=== PATIENT | male | born 1940 | race Caucasian/White ===

== ENCOUNTER 2019-05-14 08:56 | Emergency (ER) | payer MEDICARE, SELFPAY ==
[2019-05-14 09:01] VITALS: BP 191/108; PULSE 83; RESP 16; TEMP 36.6; O2SAT 96; BMI 27.2
--- NOTE | 2019-05-14 09:19 | ED_ITS ---
HPI - Male Genitourinary General: Chief complaint: Urogenital-Male Stated complaint: possible urinary tract infection Time Seen by Provider: 05/14/19 09:05 History of Present Illness: HPI Narrative: Patient is a 79-year-old male comes to the ED with problems urinating. He states that the symptoms started 2 days ago. He would have a little bit of dribbling and felt like he needed to urinate and when he would try to urinate just a little mild would come out. He states that about an hour ago he was finally able to void a large amount. He says currently he does not have abdominal pain or A feeling that his bladder is full. Denies hematuria or pain or burning when he urinates. Patient does take Flomax and ran out of his prescription on May 03. He has been trying to get an appointment with his primary care physician office for next week, but was unable to get a hold of them. Denies any fever, chest pain, shortness of breath, back pain, abdominal pain, bowel symptoms. Review of Systems General: Reports: 10 or more systems reviewed and unremarkable except in HPI and below PFSH ED PFSH: Statuses (acute, chronic, etc) shown below reflect problem list status as previously entered and may not be historically accurate Social History Smoking and tobacco status: former smoker Physical Exam Const: COMMON NORMALS: oriented x3 HENMT: COMMON NORMALS: normocephalic HEAD & SCALP: normocephalic MOUTH: oral and palatal mucosa normal TEETH & GINGIVA: Yes abnormal tooth and associated gingiva, Yes caries and Yes poor dentition THROAT: posterior oropharynx normal and uvula midline Neck/C-Spine: COMMON NORMALS: supple GENERAL: Yes normal visual inspection Resp: COMMON NORMALS: normal respiratory effort, no retractions, no use of accessory muscles and clear to auscultation bilaterally AUSCULTATION: clear to auscultation bilaterally Cardio: COMMON NORMALS: regular rate, regular rhythm, S1 normal heart sound, S2 normal heart sound, no gallops, no clicks, no murmurs and peripheral pulses 2+ throughout RATE: regular rate RHYTHM: regular rhythm HEART SOUNDS: S1 normal and S2 normal PERIPHERAL PULSES: pulses 2+ throughout GI: COMMON NORMALS: normal to inspection, nondistended, normoactive bowel sounds, soft to palpation, non-tender and no masses PALPATION: Yes soft : COMMON NORMALS: Yes no CVA tenderness BLADDER/KIDNEY EXAM: Yes no CVA tenderness Back/Pelvis: COMMON NORMALS: no CVA tenderness Neuro: COMMON NORMALS: oriented x3 and moves all extremities GAIT: Yes normal gait Procedures Catheter Insertion (Urinary) Date of insertion: 05/14/19 Reason for placing: Yes Reason for placing indwelling catheter: Acute urinary retention Bladder scan/ultrasound used before catheterization: Yes Estimated amount of urine (mLs): 999 Antiseptic solution prep: Povidone-Iodine Topical anesthesia used: No Catheter type/location: Urethral Results: successfully catheterized-immediate flow Procedure performed: without complications Comment: The nurse performed this procedure. Course ED course: Nurse performed a bladder scan and it showed that bladder contained over 999 ml. I then ordered nurse to place Sims catheter. Patient will be sent home with a catheter and given leg bag attachments and educated on care and management of catheter. I told patient that I will be putting in a urology referral to the [facility] urologist. Vital Signs: Vital signs: Vital Signs Temperature 97.8 F 05/14/19 09:01 Pulse Rate 71 05/14/19 12:16 Respiratory Rate 16 05/14/19 12:16 Blood Pressure 152/94 05/14/19 12:16 Pulse Oximetry 97 05/14/19 12:16 MDM - Male Lab Data: Attestation: I reviewed the patient's lab results. Labs: Lab Results 05/14/19 Range/Units 10:20 Urine Color Yellow (Yellow) Urine Appearance Sl hazy (CLEAR) Urine pH 5 (5-7) Ur Specific Gravit y 1.020 (1.005-1.030) Urine Protein 1+ H (Negative) Urine Glucose (UA) Norm (Normal) Urine Ketones 1+ H (Negative) Urine Occult Blood 2+ H (Negative) Urine Nitrate Positive H (Negative) Urine Bilirubin 1+ H (NEGATIVE) Urine Urobilinogen 4 H (Negative) mg/dL Ur Leukocyte Chastity ase Trace H (Negative) Urine RBC 5-10 H (0-2) /hpf Urine WBC 25-40 H (0-5) /hpf Ur Squamous Epith Cells 5-10 H (0-5) Urine Bacteria 1+ H (NONE) Hyaline Casts Rare Urine Mucus Trace Discharge Plan Discharge Patient Disposition: Home, Self-Care Clinical Impression: Acute retention of urine Urinary tract infection Qualifiers: Urinary tract infection type: acute cystitis Hematuria presence: with hematuria Qualified Code(s): N30.01 - Acute cystitis with hematuria Condition: Stable Prescriptions: New Bactrim DS 800-160 mg tablet 1 tab PO DAILY 7 Days Qty: 7 RF: 0 Flomax 0.4 mg capsule 0.4 mg PO DAILY 30 Days Qty: 30 RF: 0 Discharge Orders: Discharge Order (Routine); Ordered 05/14/19 Ordered By: Ceasar Marin Discharge Diet: Regular Discharge Activity: Resume usual activity Activity Restrictions/Additional Instructions: I am placing a referral to urology for you. The [facility] urology office (Dr. Stout) will be contacting you in the next couple days to set up an appointment. Follow structure in its told to you by the nurse on Sims catheter care and management. He'll be sent home with several leg bag attachments. Take full course of antibiotics as prescribed. Take Tylenol or ibuprofen as needed for fevers. Discharge Date/Time: 05/14/19 12:17 Coding Level of Care Code ED Talent Acquisition Director for Bayron Davis
[2019-05-14 11:02] LABS: Bilirubin Urine 1+ (NEGATIVE); Blood Urine 2+ (Negative); Glucose Urine UA Norm (Normal); Ketones Urine 1+ (Negative); Leukocyte Esterase Urine Trace (Negative); Nitrate Urine Positive (Negative); Protein Urine 1+ (Negative); Urine Appearance SL Hazy (CLEAR); Urine Color Yellow (Yellow); Urobilinogen Urine 4 mg/dL (Negative); pH Urine 5 (5-7)
[2019-05-14 11:06] LABS: Hyaline Casts Urine RARE; Mucus Urine TRACE
[2019-05-14 11:08] LABS: Bacteria Urine 1+
[2019-05-14 11:09] LABS: Add Urine Culture? Yes; WBC Urine 25-40 /hpf (0-5)
[2019-05-14 12:16] VITALS: BP 152/94; PULSE 71; RESP 16; O2SAT 97
--- NOTE | 2019-05-16 14:35 | DCPLANNER ---
computer security manager had message to schedule a follow up appointment for patient with Dr. Stout. computer security manager called the office of Dr. Stout, spoke with Jolene, gave clinic patients information. computer security manager was told that patients information would be printed and given to Ashly for review. Clinic will call patient with appointment information. computer security manager will call for appointment information.
--- NOTE | 2019-05-18 14:14 | DCPLANNER ---
Patient has a follow up appointment scheduled for 05.23.19 at 3:[address] Stout. Clinic will call patient with appointment information.
--- NOTE | 2019-06-21 14:08 | DCPLANNER ---
Patient did attend appointment scheduled for 05.23.19 with Argelia.
== END 2019-05-14 12:17 | disposition home or self-care (01) ==
PROVIDERS: Emergency Provider Physician Assistant
DX: N30.01 Acute cystitis with hematuria (principal); Z87.891 Personal history of nicotine dependence
CPT/HCPCS: 51702; 81001; 87086; 99282

== ENCOUNTER 2021-03-26 12:13 | Emergency (ER) | payer MEDICARE, SELFPAY ==
[2021-03-26 12:27] VITALS: BP 175/98; PULSE 99; RESP 16; TEMP 36.8; O2SAT 97; BMI 27.5
--- NOTE | 2021-03-26 12:46 | ECG_ITS ---
[facility] Test Date: 2021-03-26 Pat Name: Corbin Ramon Department: Room: Gender: Male Financial Intern: : 1940 Requested By: Rigoberto Florian Order Number: [id number] Reading MD: ELIOT CROW Measurements Intervals [place] Rate: 81 P: 32 DC: 185 QRS: -16 QRSD: 90 T: 24 QT: 373 QTc: 434 Interpretive Statements SINUS RHYTHM Compared to ECG 12/30/2017 02:26:03 Atrial fibrillation no longer present Electronically Signed On 03-26-2021 19:58:06 MORTGAGE ACCOUNTING CLERK by ELIOT CROW [email or web address]
--- NOTE | 2021-03-26 12:50 | ED_ITS ---
Documented by User: Rigoberto Thao DO 03/27/21 11:47 HPI - Altered Mental Status General: Chief Complaint: Altered Mental Status Stated Complaint: MHE//HI Time Seen by Provider: 03/26/21 12:30 History of Present Illness: HPI narrative: 81-year-old male presents to the emergency room via private vehicle. Evidently he is quite upset and threatened current owners of the property that he had previously lost with his ex-. P atient is disoriented confused on Mini-Mental status exam he scores very poorly. He uses several distracting techniques when questioned directly. He feels the property is his that he lost in a divorce and he was making threatening MD complaint: altered mental status and confusion Onset (ago): unknown Severity: mild Consistency of symptoms: Getting Worse Associated symptoms: Reports delusions; Deny auditory hallucinations, visual hallucinations, depression, homicidal ideation, racing thoughts or suicidal ideation Review of Systems Const: Denies: fever(s), chills, body aches, change in appetite, fatigue or malaise ENMT: Denies: throat pain, ear or mastoid pain, nasal discharge or nasal congestion Card: Denies: chest pain, edema, dyspnea on exertion or orthopnea Resp: Denies: dyspnea, productive cough or non-productive cough GI: Denies: abdominal pain, nausea, vomiting, hematemesis, coffee ground emesis, diarrhea, constipation, bloating, hematochezia or melena : Denies: flank pain, dysuria, urinary frequency or urinary urgency Skin/Breast: Denies: rash or pruritus Psych: Denies: depression, visual hallucinations, auditory hallucinations, suicidal ideation or homicidal ideation [facility] ED PFSH: Medical History (Updated 03/26/21 @ 20:43 by Ministerio Grewal MD) Urinary retention Family History Father , PROSTATE CANCER No problems noted. Social History Smoking and tobacco status: former smoker Alcohol intake: never Adopted: No Caregiver/support person: No Lives independently: No Household members: significant other Marital status: Life Partner Current occupational status: retired Physical Exam Const: COMMON NORMALS: no acute distress GENERAL APPEARANCE: cooperative and comfortable ORIENTATION/CONSCIOUSNESS: Yes awake, Yes oriented to person, Yes oriented to place and Yes oriented to time HENMT: COMMON NORMALS: normocephalic, atraumatic and hearing grossly normal bilaterally HEAD & SCALP: normocephalic and atraumatic Neck/C-Spine: COMMON NORMALS: no JVD Resp: COMMON NORMALS: normal respiratory effort, No retractions, No use of accessory muscles and clear to auscultation bilaterally AUSCULTATION: clear to auscultation bilaterally Cardio: COMMON NORMALS: no JVD, regular rate, regular rhythm and No murmurs present (Cardio) RATE: regular rate RHYTHM: regular rhythm GI: COMMON NORMALS: Soft to palpation and No hepatosplenomegaly present AUSCULTATION: Yes normoactive bowel sounds PALPATION: Yes Soft to palpation, No Tenderness to palpation present (GI), No Guarding due to palpation present ( GI) and Yes No hepatosplenomegaly present Extremity: COMMON NORMALS: normal to inspection, capillary refill normal, no clubbing, cyanosis or edema, no calf tenderness and no pedal edema Neuro: SENSORIUM/ORIENTATION: Yes oriented to person, Yes oriented to place and Yes oriented to time Psych: THOUGHT CONTENT: Yes delusions Skin: COMMON NORMALS: no rashes or lesions noted GENERAL SKIN EXAM: no rashes or lesions noted Course Vital Signs: Vital signs: Vital Signs Temperature 98.2 F 03/27/21 05:42 Pulse Rate 60 03/27/21 05:42 Respiratory Rate 18 03/27/21 05:42 Blood Pressure 149/90 03/27/21 05:42 Pulse Oximetry 97 03/27/21 05:42 MDM - Altered Mental Status MDM Narrative: Medical decision making narrative: March 26, 2021 6 PM?care turned over to Dr. Grewal at change of shift. March 27, 2021 5:45 AM?care assumed at change of shift. We are waiting on transfer we have an accepting facility but has not yet been able to transfer him out. We are waiting on ambulance availability. [id number] initial facility that was planning on taking him has declined. [place] has excepted Dr. Bone will accept reviewed labs discussed with his nurse practitioner will transfer via ambulance. Lab Data: Labs: Lab Results 03/26/21 03/26/21 03/26/21 13:35 13:35 13:45 WBC Cancelled Corrected WBC Cancelled RBC Cancelled Hgb Cancelled Hct Cancelled MCV Cancelled MCH Cancelled MCHC Cancelled RDW Cancelled Plt Count Cancelled MPV Cancelled Gran % Cancelled Neut % (Auto) Cancelled Lymph % (Auto) Cancelled [place] % (Auto) Cancelled Eos % (Auto) Cancelled Baso % (Auto) Cancelled Neut # (Auto) Cancelled Lymph # (Auto) Cancelled [place] # (Auto) Cancelled Eos # (Auto) Cancelled Baso # (Auto) Cancelled Absolute Gran (aut o) Cancelled Nucleated RBC % (a uto) Cancelled Nucleated RBCs # Cancelled Sodium Potassium Chloride Carbon Dioxide Anion Gap BUN Creatinine GFR Calculation Glucose Calculated Osmolal ity Calcium Total Bilirubin AST ALT Alkaline Phosphata se Total Protein Albumin Globulin TSH Free T4 Free T3 Urine Color Straw (Yellow) Urine Appearance Clear (CLEAR) Urine pH 5 (5-7) Ur Specific Gravit y 1.020 (1.005-1.030) Urine Protein Neg (Negative) Urine Glucose (UA) Norm (Normal) Urine Ketones Negative (Negative) Urine Blood Trace H (Negative) Urine Nitrate Negative (Negative) Urine Bilirubin Neg (Negative) Urine Urobilinogen Norm mg/dL mg/dL (Negative) Ur Leukocyte Chastity ase 1+ H (Negative) Urine RBC 0-4 /hpf H /hpf (0-2) Urine WBC 5-10 /hpf H /hpf (0-5) Ur Squamous Epith Cells 0-4 /hpf H /hpf (0-5) Amorphous Sediment Not Reportable Urine Bacteria Trace /hpf /hpf (NONE) Urine Mucus Trace /hpf /hpf Salicylates Urine Opiates Scre en Negative ng/mL ng /mL (Negative) Acetaminophen Ur Barbiturates Sc reen Negative ng/mL ng /mL (Negative) Ur Phencyclidine S crn Negative ng/mL ng /mL (Negative) Ur Amphetamines Sc reen Negative ng/mL ng /mL (Negative) U Benzodiazepines Scrn Negative ng/mL ng /mL (Negative) Urine Cocaine Scre en Negative ng/mL ng /mL (Negative) U Marijuana (THC) Screen Negative ng/mL ng /mL (Negative) Ethyl Alcohol SARS-CoV-2 Ag (Rap id) 03/26/21 03/26/21 03/26/21 13:45 14:05 14:25 WBC 8.9 10^3/uL 10^3/ uL (4.0-10.0) Corrected WBC RBC 4.71 10^6/uL 10^6 /uL (4.1-5.3) Hgb 14.9 g/dL g/dL (11.7-16.6) Hct 45.2 % % (42.0-52.0) MCV 96.0 fl H fl (80-94) MCH 31.6 pg pg (28.0-34.0) MCHC 33.0 g/dL g/dL (30.0-36.0) RDW 13.3 % % (12.1-15.1) Plt Count 225 10^3/cmm 10^3 /cmm (130-400) MPV 9.7 fL fL (7.4-10.4) Gran % Neut % (Auto) 79.4 % % Lymph % (Auto) 12.5 % % [place] % (Auto) 7.5 % % Eos % (Auto) 0.1 % % Baso % (Auto) 0.3 % % Neut # (Auto) 7.05 10^3/uL 10^3 /uL (1.8-7.7) Lymph # (Auto) 1.1 10^3/uL 10^3/ uL (0.8-4.8) [place] # (Auto) 0.7 10^3/uL 10^3/ uL (0.2-0.9) Eos # (Auto) 0.0 10^3/uL 10^3/ uL (0.0-0.8) Baso # (Auto) 0.0 10^3/uL 10^3/ uL (0.0-0.1) Absolute Gran (aut o) Nucleated RBC % (a uto) 0 % % Nucleated RBCs # 0.0 /100WBC /100W BC Sodium Cancelled 141 mmol/L mmol/L (136-145) Potassium Cancelled 4.1 mmol/L mmol/L (3.5-5.1) Chloride Cancelled 102 mmol/L mmol/L (98-107) Carbon Dioxide Cancelled 21 mmol/L L mmol/ L (22-29) Anion Gap Cancelled 22.1 H (5-19) BUN Cancelled 13 mg/dL mg/dL (8-23) Creatinine Cancelled 1.4 mg/dL H mg/dL (0.7-1.2) GFR Calculation Cancelled Not Reportable Glucose Cancelled 102 mg/dL mg/dL (65-115) Calculated Osmolal ity Cancelled 292 mOsm/kg mOsm/ kg (285-295) Calcium Cancelled 8.9 mg/dL mg/dL (8.5-10.5) Total Bilirubin Cancelled 0.7 mg/dL mg/dL (0.15-1.2) AST Cancelled 12 U/L U/L (0-40) ALT Cancelled 11 U/L U/L (0-41) Alkaline Phosphata se Cancelled 58 IU/L IU/L (40-130) Total Protein Cancelled 6.7 g/dL g/dL (6.6-8.7) Albumin Cancelled 4.3 g/dL g/dL (3.5-5.2) Globulin Cancelled 2.4 g/dL g/dL (1.3-4.6) TSH Cancelled 2.41 uIU/mL uIU/m L (0.27-4.20) Free T4 Free T3 Urine Color Urine Appearance Urine pH Ur Specific Gravit y Urine Protein Urine Glucose (UA) Urine Ketones Urine Blood Urine Nitrate Urine Bilirubin Urine Urobilinogen Ur Leukocyte Chastity ase Urine RBC Urine WBC Ur Squamous Epith Cells Amorphous Sediment Urine Bacteria Urine Mucus Salicylates Cancelled < 0.3 mg/dL L mg/ dL (3-10) Urine Opiates Scre en Acetaminophen Cancelled < 5.0 ug/mL L ug/ mL (10-30) Ur Barbiturates Sc reen Ur Phencyclidine S crn Ur Amphetamines Sc reen U Benzodiazepines Scrn Urine Cocaine Scre en U Marijuana (THC) Screen Ethyl Alcohol Cancelled < 10 mg/dL mg/dL (0-10) SARS-CoV-2 Ag (Rap id) 03/26/21 03/26/21 14:25 15:18 WBC Corrected WBC RBC Hgb Hct MCV MCH MCHC RDW Plt Count MPV Gran % Neut % (Auto) Lymph % (Auto) [place] % (Auto) Eos % (Auto) Baso % (Auto) Neut # (Auto) Lymph # (Auto) [place] # (Auto) Eos # (Auto) Baso # (Auto) Absolute Gran (aut o) Nucleated RBC % (a uto) Nucleated RBCs # Sodium Potassium Chloride Carbon Dioxide Anion Gap BUN Creatinine GFR Calculation Glucose Calculated Osmolal ity Calcium Total Bilirubin AST ALT Alkaline Phosphata se Total Protein Albumin Globulin TSH Free T4 1.09 ng/dL ng/dL (0.82-1.77) Free T3 2.4 PG/ML PG/ML (2.0-4.4) Urine Color Urine Appearance Urine pH Ur Specific Gravit y Urine Protein Urine Glucose (UA) Urine Ketones Urine Blood Urine Nitrate Urine Bilirubin Urine Urobilinogen Ur Leukocyte Chastity ase Urine RBC Urine WBC Ur Squamous Epith Cells Amorphous Sediment Urine Bacteria Urine Mucus Salicylates Urine Opiates Scre en Acetaminophen Ur Barbiturates Sc reen Ur Phencyclidine S crn Ur Amphetamines Sc reen U Benzodiazepines Scrn Urine Cocaine Scre en U Marijuana (THC) Screen Ethyl Alcohol SARS-CoV-2 Ag (Rap id) Negative (Negative) Discharge Plan Discharge Patient Disposition: Xfer Psychiatric Hosp Clinical Impression: Agitation, Confusion Condition: Stable Referrals: Brian Reyes MD [Primary Care Provider] - Coding Level of Care Code ED Manager Document Control for Chg Fwd Exam Comprehensive Documented by User: Ministerio Grewal MD 03/26/21 20:44 HPI - Altered Mental Status General: Chief Complaint: Altered Mental Status Stated Complaint: MHE//HI Time Seen by Provider: 03/26/21 12:30 PFSH ED PFSH: Medical History (Updated 03/26/21 @ 20:43 by Ministerio Grewal MD) Urinary retention Family History Father , PROSTATE CANCER No problems noted. Social History Smoking and tobacco status: former smoker Alcohol intake: never Adopted: No Caregiver/support person: No Lives independently: No Household members: significant other Marital status: Life Partner Current occupational status: retired Course Vital Signs: Vital signs: Vital Signs Temperature 98.2 F 03/27/21 05:42 Pulse Rate 60 03/27/21 05:42 Respiratory Rate 18 03/27/21 05:42 Blood Pressure 149/90 03/27/21 05:42 Pulse Oximetry 97 03/27/21 05:42 MDM - Altered Mental Status MDM Narrative: Medical decision making narrative: Patient presents here with agitation has been threatening people as well I took patient over from Dr. Amaro I spoke to Dr. Whitt at [place] who is excepting for geriatric psych patient is medically cleared will transfer there. Lab Data: Labs: Lab Results 03/26/21 03/26/21 03/26/21 13:35 13:35 13:45 WBC Cancelled Corrected WBC Cancelled RBC Cancelled Hgb Cancelled Hct Cancelled MCV Cancelled MCH Cancelled MCHC Cancelled RDW Cancelled Plt Count Cancelled MPV Cancelled Gran % Cancelled Neut % (Auto) Cancelled Lymph % (Auto) Cancelled [place] % (Auto) Cancelled Eos % (Auto) Cancelled Baso % (Auto) Cancelled Neut # (Auto) Cancelled Lymph # (Auto) Cancelled [place] # (Auto) Cancelled Eos # (Auto) Cancelled Baso # (Auto) Cancelled Absolute Gran (aut o) Cancelled Nucleated RBC % (a uto) Cancelled Nucleated RBCs # Cancelled Sodium Potassium Chloride Carbon Dioxide Anion Gap BUN Creatinine GFR Calculation Glucose Calculated Osmolal ity Calcium Total Bilirubin AST ALT Alkaline Phosphata se Total Protein Albumin Globulin TSH Free T4 Free T3 Urine Color Straw (Yellow) Urine Appearance Clear (CLEAR) Urine pH 5 (5-7) Ur Specific Gravit y 1.020 (1.005-1.030) Urine Protein Neg (Negative) Urine Glucose (UA) Norm (Normal) Urine Ketones Negative (Negative) Urine Blood Trace H (Negative) Urine Nitrate Negative (Negative) Urine Bilirubin Neg (Negative) Urine Urobilinogen Norm mg/dL mg/dL (Negative) Ur Leukocyte Chastity ase 1+ H (Negative) Urine RBC 0-4 /hpf H /hpf (0-2) Urine WBC 5-10 /hpf H /hpf (0-5) Ur Squamous Epith Cells 0-4 /hpf H /hpf (0-5) Amorphous Sediment Not Reportable Urine Bacteria Trace /hpf /hpf (NONE) Urine Mucus Trace /hpf /hpf Salicylates Urine Opiates Scre en Negative ng/mL ng /mL (Negative) Acetaminophen Ur Barbiturates Sc reen Negative ng/mL ng /mL (Negative) Ur Phencyclidine S crn Negative ng/mL ng /mL (Negative) Ur Amphetamines Sc reen Negative ng/mL ng /mL (Negative) U Benzodiazepines Scrn Negative ng/mL ng /mL (Negative) Urine Cocaine Scre en Negative ng/mL ng /mL (Negative) U Marijuana (THC) Screen Negative ng/mL ng /mL (Negative) Ethyl Alcohol SARS-CoV-2 Ag (Rap id) 03/26/21 03/26/21 03/26/21 13:45 14:05 14:25 WBC 8.9 10^3/uL 10^3/ uL (4.0-10.0) Corrected WBC RBC 4.71 10^6/uL 10^6 /uL (4.1-5.3) Hgb 14.9 g/dL g/dL (11.7-16.6) Hct 45.2 % % (42.0-52.0) MCV 96.0 fl H fl (80-94) MCH 31.6 pg pg (28.0-34.0) MCHC 33.0 g/dL g/dL (30.0-36.0) RDW 13.3 % % (12.1-15.1) Plt Count 225 10^3/cmm 10^3 /cmm (130-400) MPV 9.7 fL fL (7.4-10.4) Gran % Neut % (Auto) 79.4 % % Lymph % (Auto) 12.5 % % [place] % (Auto) 7.5 % % Eos % (Auto) 0.1 % % Baso % (Auto) 0.3 % % Neut # (Auto) 7.05 10^3/uL 10^3 /uL (1.8-7.7) Lymph # (Auto) 1.1 10^3/uL 10^3/ uL (0.8-4.8) [place] # (Auto) 0.7 10^3/uL 10^3/ uL (0.2-0.9) Eos # (Auto) 0.0 10^3/uL 10^3/ uL (0.0-0.8) Baso # (Auto) 0.0 10^3/uL 10^3/ uL (0.0-0.1) Absolute Gran (aut o) Nucleated RBC % (a uto) 0 % % Nucleated RBCs # 0.0 /100WBC /100W BC Sodium Cancelled 141 mmol/L mmol/L (136-145) Potassium Cancelled 4.1 mmol/L mmol/L (3.5-5.1) Chloride Cancelled 102 mmol/L mmol/L (98-107) Carbon Dioxide Cancelled 21 mmol/L L mmol/ L (22-29) Anion Gap Cancelled 22.1 H (5-19) BUN Cancelled 13 mg/dL mg/dL (8-23) Creatinine Cancelled 1.4 mg/dL H mg/dL (0.7-1.2) GFR Calculation Cancelled Not Reportable Glucose Cancelled 102 mg/dL mg/dL (65-115) Calculated Osmolal ity Cancelled 292 mOsm/kg mOsm/ kg (285-295) Calcium Cancelled 8.9 mg/dL mg/dL (8.5-10.5) Total Bilirubin Cancelled 0.7 mg/dL mg/dL (0.15-1.2) AST Cancelled 12 U/L U/L (0-40) ALT Cancelled 11 U/L U/L (0-41) Alkaline Phosphata se Cancelled 58 IU/L IU/L (40-130) Total Protein Cancelled 6.7 g/dL g/dL (6.6-8.7) Albumin Cancelled 4.3 g/dL g/dL (3.5-5.2) Globulin Cancelled 2.4 g/dL g/dL (1.3-4.6) TSH Cancelled 2.41 uIU/mL uIU/m L (0.27-4.20) Free T4 Free T3 Urine Color Urine Appearance Urine pH Ur Specific Gravit y Urine Protein Urine Glucose (UA) Urine Ketones Urine Blood Urine Nitrate Urine Bilirubin Urine Urobilinogen Ur Leukocyte Chastity ase Urine RBC Urine WBC Ur Squamous Epith Cells Amorphous Sediment Urine Bacteria Urine Mucus Salicylates Cancelled < 0.3 mg/dL L mg/ dL (3-10) Urine Opiates Scre en Acetaminophen Cancelled < 5.0 ug/mL L ug/ mL (10-30) Ur Barbiturates Sc reen Ur Phencyclidine S crn Ur Amphetamines Sc reen U Benzodiazepines Scrn Urine Cocaine Scre en U Marijuana (THC) Screen Ethyl Alcohol Cancelled < 10 mg/dL mg/dL (0-10) SARS-CoV-2 Ag (Rap id) 03/26/21 03/26/21 14:25 15:18 WBC Corrected WBC RBC Hgb Hct MCV MCH MCHC RDW Plt Count MPV Gran % Neut % (Auto) Lymph % (Auto) [place] % (Auto) Eos % (Auto) Baso % (Auto) Neut # (Auto) Lymph # (Auto) [place] # (Auto) Eos # (Auto) Baso # (Auto) Absolute Gran (aut o) Nucleated RBC % (a uto) Nucleated RBCs # Sodium Potassium Chloride Carbon Dioxide Anion Gap BUN Creatinine GFR Calculation Glucose Calculated Osmolal ity Calcium Total Bilirubin AST ALT Alkaline Phosphata se Total Protein Albumin Globulin TSH Free T4 1.09 ng/dL ng/dL (0.82-1.77) Free T3 2.4 PG/ML PG/ML (2.0-4.4) Urine Color Urine Appearance Urine pH Ur Specific Gravit y Urine Protein Urine Glucose (UA) Urine Ketones Urine Blood Urine Nitrate Urine Bilirubin Urine Urobilinogen Ur Leukocyte Chastity ase Urine RBC Urine WBC Ur Squamous Epith Cells Amorphous Sediment Urine Bacteria Urine Mucus Salicylates Urine Opiates Scre en Acetaminophen Ur Barbiturates Sc reen Ur Phencyclidine S crn Ur Amphetamines Sc reen U Benzodiazepines Scrn Urine Cocaine Scre en U Marijuana (THC) Screen Ethyl Alcohol SARS-CoV-2 Ag (Rap id) Negative (Negative) Discharge Plan Discharge Patient Disposition: Xfer Psychiatric Hosp Clinical Impression: Agitation, Confusion Condition: Stable Referrals: Brian Reyes MD [Primary Care Provider] - Coding Level of Care Code ED Manager Document Control for Chg Fwd Exam Comprehensive
--- NOTE | 2021-03-26 13:14 | PC.PHAR ---
pts verified medications
[2021-03-26 13:40] VITALS: BP 175/98; PULSE 99; RESP 16; TEMP 36.8; O2SAT 97
[2021-03-26 14:10] LABS: Amphetamines Screen Urine Negative (Negative); Barbiturates Screen Urine Negative (Negative); Benzodiazepines Screen Urine Negative (Negative); Cocaine Screen Urine Negative (Negative); Opiate Screen Urine Negative (Negative); PCP Screen Urine Negative (Negative); THC Screen Urine Negative (Negative)
[2021-03-26 14:12] LABS: Add Urine Culture? No; Add Urine Microscopic? YES; Bacteria Urine TRACE /hpf; Bilirubin Urine Neg (Negative); Blood Urine Trace (Negative); Glucose Urine UA Norm (Normal); Ketones Urine Negative (Negative); Leukocyte Esterase Urine 1+ (Negative); Mucus Urine TRACE /hpf; Nitrate Urine Negative (Negative); Protein Urine Neg (Negative); RBC Urine 0-4 /hpf (0-2); Squamous Epithelial Cell Urine 0-4 /hpf (0-5); Urine Appearance Clear (CLEAR); Urine Color Straw (Yellow); Urobilinogen Urine Norm (Negative); pH Urine 5 (5-7)
[2021-03-26 14:37] LABS: Basophils % 0.3 %; Eosinophils % 0.1 %; Hematocrit 45.2 % (42.0-52.0); Hemoglobin 14.9 g/dL (11.7-16.6); Lymphocytes # 1.1 10^3/uL (0.8-4.8); Lymphocytes % 12.5 %; Mean Corpuscular Hemoglobin 31.6 pg (28.0-34.0); Mean Platelet Volume 9.7 fL (7.4-10.4); Monocytes # 0.7 10^3/uL (0.2-0.9); Monocytes % 7.5 %; Neutrophils # 7.05 10^3/uL (1.8-7.7); Neutrophils % 79.4 %; Nucleated Red Blood Cells % 0 %; Platelet Count 225 10^3/cmm (130-400); Red Blood Count 4.71 10^6/uL (4.1-5.3); Red Cell Distribution Width 13.3 % (12.1-15.1); White Blood Count 8.9 10^3/uL (4.0-10.0)
[2021-03-26 14:48] LABS: Alanine Aminotransferase 11 U/L (0-41); Albumin Level 4.3 g/dL (3.5-5.2); Alkaline Phosphatase 58 IU/L (40-130); Anion Gap 22.1 (5-19); Aspartate Amino Transferase 12 U/L (0-40); Blood Urea Nitrogen 13 mg/dL (8-23); Calcium 8.9 mg/dL (8.5-10.5); Carbon Dioxide 21 mmol/L (22-29); Chloride 102 mmol/L (98-107); Globulin 2.4 g/dL (1.3-4.6); Glucose 102 mg/dL (65-115); Osmolality Calculated 292 mOsm/kg (285-295); Potassium 4.1 mmol/L (3.5-5.1); Sodium 141 mmol/L (136-145); Thyroid Stimulating Hormone 2.41 uIU/mL (0.27-4.20); Total Bilirubin 0.7 mg/dL (0.15-1.2); Total Protein 6.7 g/dL (6.6-8.7)
[2021-03-26 14:53] LABS: Acetaminophen < 5.0 ug/mL (10-30); Alcohol Level < 10 mg/dL (0-10); Salicylate < 0.3 mg/dL (3-10)
--- NOTE | 2021-03-26 15:03 | XR_ITS ---
WS: [id number] Exam: XR chest 1V portable [id number] Date/Time of Exam: 03/26/2021 3:09 PM Reason For Exam: dyspnea/cough Comparison 12/29/2017. Findings: The lungs are clear and fully expanded. Costophrenic angles are sharp. No infiltrates. Bronchovascula r relief appears normal. Cardiac silhouette is unremarkable. Bony elements are intact. XR/XR chest 1V portable [id number] IMPRESSION: Unremarkable chest radiograph.
[2021-03-26 15:41] LABS: Free T4 Free Thyroxine 1.09 ng/dL (0.82-1.77); T3 Free 2.4 PG/ML (2.0-4.4)
[2021-03-26 16:18] LABS: SARS Covid-2 Antigen Negative (Negative)
--- NOTE | 2021-03-26 16:32 | PC.NURSE ---
PATIENT RESTING IN BED WITH VISITOR. PATIENT HAS 1:1 SITTER. PATIENT HAS NO FURTHER NEEDS.
--- NOTE | 2021-03-26 17:00 | PC.NURSE ---
PATIENT BECOMING MORE AGGITATED. PATIENT TOLD THAT HE WAS WAITING FOR ANOTHER ROOM AND BECAME FRUSTRATED STATING THAT HE HAD THINGS TO DO AT HOME. PROVIDER NOTIFIED. PO ATIVAN ORDERED.
[2021-03-26] MEDS: LORazepam 1 mg Tablet PO (17:20)
[2021-03-26] MEDS: OLANZapine 5 mg TABLET PO (18:18)
--- NOTE | 2021-03-26 22:52 | PC.NURSE ---
Pt accepted at [facility]. Awaiting transport for pt.
--- NOTE | 2021-03-26 23:10 | CTR_ITS ---
PROCEDURE INFORMATION: Exam: CT Head Without Contrast Exam date and time: 03/26/2021 11:10 PM Age: 81 years old Clinical indication: Altered mental status/memory loss; Additional info: AMS TECHNIQUE: Imaging protocol: Computed tomography of the head without contrast. Radiation optimization: All CT scans at this facility use at least one of these dose optimization techniques: automated exposure control; mA and/or kV adjustment per patient size (includes targeted exams where dose is matched to clinical indication); or iterative reconstruction. COMPARISON: CT head wo con* [id number] 12/29/2017 10:13 PM RADIATION DOSE METRICS: Total DLP (mGy-cm): 1044.8 FINDINGS: Brain: There is moderate cortical atrophy. Low-density changes in the white matter are consistent with nonspecific small vessel chronic ischemic change. There is no intracranial mass, hemorrhage or edema. Cerebral ventricles: No ventriculomegaly. Paranasal sinuses: There is a small mucous retention cyst in the right maxillary antrum. Mastoid air cells: Visualized mastoid air cells are well aerated. Bones/joints: Unremarkable. No acute fracture. Soft tissues: Unremarkable. CT/CT head wo con* [id number] IMPRESSION: No acute intracranial findings.
--- NOTE | 2021-03-27 00:27 | PC.NURSE ---
Transport unavailable until a.m.
--- NOTE | 2021-03-27 02:16 | PC.NURSE ---
Pt resting quietly at this time. No new issues or concerns. Pt case to be reviewed [facility] tomorrow.
[2021-03-27 05:42] VITALS: BP 149/90; PULSE 60; RESP 18; TEMP 36.8; O2SAT 97
--- NOTE | 2021-03-27 05:43 | PC.NURSE ---
Pt awake, confused. Pt redirectable.
--- NOTE | 2021-03-27 06:15 | PC.NURSE ---
Pt resting quietly at this time. No new issues or concerns.
[2021-03-27 13:58] VITALS: BP 150/92; PULSE 70; RESP 18; O2SAT 98
[2021-03-27 15:06] VITALS: BP 150/92; PULSE 70; RESP 18; O2SAT 98
== END 2021-03-27 15:06 ==
PROVIDERS: Family Medicine; Emergency Provider Emergency Medicine; PCP Family Medicine
DX: R41.0 Disorientation, unspecified (principal); R45.1 Restlessness and agitation; Z87.891 Personal history of nicotine dependence; Z20.822 Contact with and (suspected) exposure to COVID-19
CPT/HCPCS: 36415; 70450; 71045; 80053; 80306; 80307; 81001; 84439; 84443; 84481; 85025; 87426; 93005; 99285